=== PATIENT | female | born 1935 | race Caucasian/White ===

== ENCOUNTER 2017-10-30 10:12 | Inpatient (IN) | payer OTHER, MEDICARE ==
[~2017-10-30] VITALS: Ht 152.4 cm; Wt 65.3 kg
[~2017-10-30 10:12] MED LIST: ASPIRIN EC81 M1 PO; CENTRUM SILVER1 EAC3 PO; CITRACAL + D E1 EACH PO; DILTIAZEM 24HR240 MG PO; LIPITOR20 M2 PO; LISINOPRIL-HCT1 EACH PO; SERTRALINE HCL50 MG PO
[2017-10-30] MEDS ORDERED: PRESERVISION A1 EACH PO (11:38)
[2017-10-30] MEDS ORDERED: VITAMIN D31000 UNI2 PO (11:39)
[2017-10-30 11:42] LABS: ABSOLUTE BASOPHIL COUNT 0.1 /CUMM (0.0-0.2); ABSOLUTE EOSINOPHIL COUNT 0 /CUMM (0.0-0.7); ABSOLUTE GRANULOCYTE CT 5.3 /CUMM (1.4-6.5); ABSOLUTE LYMPH COUNT 1.7 /CUMM (1.2-3.4); ABSOLUTE MONOCYTE COUNT 0.6 /CUMM (0.10-0.60); BASOPHIL % 0.9 % (0.0-2.0); EOSINOPHIL % 0 % (0-5); MEAN CORPUSCULAR HGB 25.6 PG (27.0-31.0); MEAN CORPUSCULAR HGB CONC 32.8 G/DL (33.0-37.0); MEAN CORPUSCULAR VOLUME 78.1 FL (81.0-99.0); PLATELET COUNT 265 /CUMM (130-400); RBC DISTRIBUTION WIDTH 15.1 % (11.5-14.5); RED BLOOD CELL CT 4.73 /CUMM (4.20-5.40); WHITE BLOOD CELL COUNT 7.6 /CUMM (4.8-10.8)
--- NOTE | 2017-10-30 11:51 | ED AMS/SEIZURE/WEAK/DIZZY ---
History of Present Illness General Chief Complaint: Dizziness Stated Complaint: DIZZY Source: patient Exam Limitations: no limitations Vital Signs & Intake/Output Vital Signs & Intake/Output Vital Signs Date Time Temp Pulse Resp B/P B/P Pulse O2 O2 Flow FiO2 Mean Ox Delivery Rate 10/30 1259 Room Air 10/30 1215 98.6 75 20 141/65 97 Room Air 10/30 1018 98.4 98 18 175/76 98 Room Air Allergies Coded Allergies: shrimp (Severe, ANAPHYLAXIS 10/30/17) Reconcile Medications Aspirin (Ecotrin*) 81 MG TABLET.DR 1 TAB PO DAILY HEART HEALTH (Reported) Atorvastatin Calcium (Lipitor) 20 MG TABLET 1 TAB PO DAILY CHOLESTEROL ( Reported) Calcium Carb & Citrate/Vit D3 (Citracal + D ER Tablet) 600 MG CALCIUM-500 UNIT TABLET.ER 1 TAB PO DAILY VITAMIN SUPPORT (Reported) Cholecalciferol (Vitamin D3) 1,000 UNIT TABLET 1 TAB PO DAILY VITAMIN SUPPORT (Reported) Diltiazem HCl (Diltiazem 24HR ER) 240 MG CAP.ER.24H 1 CAP PO DAILY HEART ( Reported) Lisinopril/Hydrochlorothiazide (Lisinopril-Hctz 20-12.5 MG Tab) 20 MG-12.5 MG TABLET 1 TAB PO DAILY HEART (Reported) Multivit-Min/FA/Lycopen/Lutein (Centrum Silver Tablet) 0.4 MG-300 MCG-250 MCG TABLET 1 TAB PO DAILY VITAMIN SUPPORT (Reported) Sertraline HCl 50 MG TABLET 1 TAB PO DAILY MENTAL HEALTH (Reported) Vit A/Vit C/Vit E/Zinc/Copper (Preservision Areds Tablet) 7,160-113 TABLET 1 TAB PO DAILY EYE (Reported) Triage Note: 82 YO FEMALE TO TRIAGE FOR EVAL OF EPISODE YESTERDAY WHERE SHE WAS STANDING AT THE COUNTER AND HAD COLD SWEATS AND WASNT RESPONDING TO FAMILY. PER FAMILY, PT DID NOT FALL TO THE GROUND "IT WAS LIKE SHE PASSED OUT BUT WAS STANDING THERE" PT STATES SHE REMEMBERS THE ENTIRE EPISODE AND REMEMBERS HEARING HER FAMILY TALKNIG TO HER BUT SHE COULDNT RESPOND. REPORTS TODAY SHE FEELS "OFF" DENIES ANY PAIN. Triage Nurses Notes Reviewed? yes Onset: Abrupt Duration: day(s): (1), yesterday Timing: recent history Injury Environment: home Severity: moderate, severe No Modifying Factors: none HPI: 82-year-old female comes into the emergency room for further evaluation of unresponsive episode that occurred yesterday. Patient reported she was drying dishes at the sink. She suddenly became very lightheaded dizzy and sweaty. The family member reports that she had a stone cold face and certainly was not responding when they were asking her questions. She was standing there. They sat her down. They report that there was no complete loss of consciousness. She denied any chest pain or shortness of breath at that time. Symptoms lasted for less than 2 minutes. She did not have any slurring of her words or facial droop at that time. She reports that this happened to her some about a year ago. (Pino Schroeder) Past History Travel History Traveled to [place] past 21 day No Medical History Any Pertinent Medical History? see below for history Cardiovascular: hypertension, hyperlipidemia Surgical History Surgical History: non-contributory Psychosocial History What is your primary language Divehi Tobacco Use: Quit >30 days ago Family History Hx Contributory? No (Pino Schroeder) Review of Systems Review of Systems Constitutional: Reports: no symptoms. EENTM: Reports: no symptoms. Respiratory: Reports: no symptoms. Cardiovascular: Reports: see HPI. GI: Reports: no symptoms. Genitourinary: Reports: no symptoms. Musculoskeletal: Reports: no symptoms. Skin: Reports: no symptoms. Neurological/Psychological: Reports: see HPI. Hematologic/Endocrine: Reports: no symptoms. Immunologic/Allergic: Reports: no symptoms. All Other Systems: Reviewed and Negative (Pino Schroeder) Physical Exam Physical Exam General Appearance: well developed/nourished, no apparent distress, alert, awake Head: atraumatic, normal appearance Eyes: Bilateral: normal appearance, EOMI. Ears, Nose, Throat: normal ENT inspection, hearing grossly normal Neck: normal inspection Respiratory: normal breath sounds, no respiratory distress Cardiovascular: regular rate/rhythm, murmur Gastrointestinal: soft, non-tender Back: normal inspection Extremities: normal range of motion Neurologic/Psych: no motor/sensory deficits, awake, alert, oriented x 3, normal gait, direct support staff member II-XII nml as tested, graphesthesia and stereognosis intact, finger to nose intact Skin: intact, normal color Core Measures ACS in differential dx? No CVA/TIA Diagnosis Yes Swallow Evaluation Pass Swallow eval date 10/30/17 Swallow eval time 1418 Sepsis Present: No Sepsis Focused Exam Completed? No (Jonathan THOMAS,Pino) Progress Differential Diagnosis: arrythmia, alcohol intoxication, CVA/stroke, dehydration , electrolyte imbalance, hypoglycemia, hypoxia, intracranial Hem., intracranial mass/tumor, pneumonia, postural hypotension, sepsis, seizure disorder, subarachnoid Hem., UTI/pyelo, vertebrobasilar insuff Plan of Care: Orders Procedure Date/time Status Regular Diet 10/30 D Active Patient Data 10/30 1406 Active OXYGEN SETUP (GEN) 10/30 1318 Active Saline Lock 10/30 1318 Active Admit to inpatient 10/30 1318 Active Vital Signs 10/30 1318 Active Activity/Ambulation 10/30 1318 Active Code Status 10/30 1318 Active Telemetry/Student Development Advisor 10/30 1134 Active URINALYSIS 10/30 1133 Active TROPONIN LEVEL 10/30 1114 Complete PARTIAL THROMBOPLASTIN TIME 10/30 1114 Complete PROTHROMBIN TIME 10/30 1114 Complete COMPREHENSIVE METABOLIC PANEL 10/30 1114 Complete CBC WITHOUT DIFFERENTIAL 10/30 1114 Complete EKG 10/30 1018 Active Laboratory Tests 10/30/17 1132: Anion Gap 11, Estimated GFR > 60, BUN/Creatinine Ratio 21.3, Glucose 112 H, Calcium 9.5, Total Bilirubin 0.7, AST 40 H, ALT 47, Alkaline Phosphatase 144 H , Troponin I < 0.01, Total Protein 7.4, Albumin 4.3, Globulin 3.1, Albumin/ Globulin Ratio 1.4, PT 11.7, INR 1.07, APTT 30, CBC w Diff NO MAN DIFF REQ, RBC 4.73, MCV 78.1 L, MCH 25.6 L, MCHC 32.8 L, RDW 15.1 H, MPV 11.0 H, Gran % 69.0, Lymphocytes % 22.4, Monocytes % 7.7, Eosinophils % 0, Basophils % 0.9, Absolute Granulocytes 5.3, Absolute Lymphocytes 1.7, Absolute Monocytes 0.6, Absolute Eosinophils 0, Absolute Basophils 0.1 Diagnostic Imaging: Viewed by Me: CT Scan. Discussed w/RAD: CT Scan. Radiology Impression: PATIENT: JAI SOMMERS PRESENT AGE: 82 PATIENT ACCOUNT NO: [id number] : 36 LOCATION: [facility] ORDERING PHYSICIAN: Pino THOMAS SERVICE DATE: 10/30/17 EXAM TYPE : CAT - CT HEAD WO IV CONTRAST EXAMINATION: CT HEAD WITHOUT CONTRAST CLINICAL INFORMATION: Syncope. TIA. COMPARISON: CT scan of the head 08/08/2014. TECHNIQUE : Contiguous axial imaging was performed from the skull base to vertex without intravenous administration of contrast. DLP: 601.51 mGy-cm FINDINGS: There is no acute intracranial hemorrhage or abnormal extra-axial collection. No intracranial mass effect or midline shift. Lateral and third ventricles are normal. No hydrocephalus. Russell-white matter differentiation is grossly preserved and there is no evidence of acute territorial infarct. The calvarium and skull base are intact. Mastoid air cells and middle ear cavities are well aerated. Visualized paranasal sinuses are well-aerated. IMPRESSION: Unremarkable CT scan of the head. No evidence of acute territorial infarct or hemorrhage. DICTATED BY : Norebrt William MD DATE/TIME DICTATED:10/30/171212 AGRICULTURAL CROP FARM MANAGER: SHAYLA DATE/TIME TRANSCRIBED:10/30/171212 CONFIDENTIAL, DO NOT COPY WITHOUT APPROPRIATE AUTHORIZATION. <Electronically signed in Other Vendor System> SIGNED BY: Norbert William MD 10/30/171218 Initial ED EKG: normal sinus rhythm, rate (87), nonspecific ST T wave chg (Pino Schroeder) Departure Departure Disposition: STILL A PATIENT Condition: Stable Clinical Impression Primary Impression: TIA (transient ischemic attack) Referrals: Christina RYAN,Tin Farrar (PCP/Family) Departure Forms: Customer Survey General Discharge Information Admission Note Spoke With: Prince Lopez MD Documentation of Exam: Documentation of any treatments & extenuating circumstances including Concerns Regarding Discharge (functional status, medication knowledge or non-compliance, living conditions, etc.) that warrant an admission rather than observation: TIA versus syncope versus focal seizure. MRI of brain. EEG. Carotid artery Dopplers. Echocardiogram. Neurology and cardiology consultation. Medically not safe for discharge. (Pino Schroeder) PA/RESAW MACHINE OPERATOR Co-Sign Statement Statement: ED Attending supervision documentation- x I saw and evaluated the patient. I have also reviewed all the pertinent lab results and diagnostic results. I agree with the findings and the plan of care as documented in the PA's/RESAW MACHINE OPERATOR's documentation. Episode of staring unresponsiveness able to hear surrounding family now normal. Had previous episode 3 years ago without workup. [] I have reviewed the ED Record and agree with the PA's/RESAW MACHINE OPERATOR's documentation. [] Additions or exceptions (if any) to the PAs/RESAW MACHINE OPERATOR's note and plan are summarized below: [] (Arcadio RYAN,Yassine) Critical Care Note Critical Care Note Critical Care Time: 30-74 min (35) (Jonathan THOMAS,Pino)
[2017-10-30 12:12] LABS: PT 11.7 SEC (9.4-12.5); PTT 30 SEC (25-37)
--- NOTE | 2017-10-30 12:19 | CT SCAN REPORT ---
EXAMINATION: CT HEAD WITHOUT CONTRAST CLINICAL INFORMATION: Syncope. TIA. COMPARISON: CT scan of the head 08/08/2014. TECHNIQUE: Contiguous axial imaging was performed from the skull base to vertex without intravenous administration of contrast. DLP: 601.51 mGy-cm FINDINGS: There is no acute intracranial hemorrhage or abnormal extra-axial collection. No intracranial mass effect or midline shift. Lateral and third ventricles are normal. No hydrocephalus. Russell-white matter differentiation is grossly preserved and there is no evidence of acute territorial infarct. The calvarium and skull base are intact. Mastoid air cells and middle ear cavities are well aerated. Visualized paranasal sinuses are well-aerated. IMPRESSION: Unremarkable CT scan of the head. No evidence of acute territorial infarct or hemorrhage.
--- NOTE | 2017-10-30 14:27 | History & Physical ---
Chris Verma 10/30/17 1427: General Information and HPI MD Statement: I have seen and personally examined JAI VALDEZ and documented this H&P. The patient is a 82 year old F who presented with a patient stated chief complaint of []. Source of Information: patient, family History of Present Illness: 82 yo F with a PMH significant for HTN, HLD, macular degeneration, previous cholesystectomy, and depression, was brought to [facility] ED after an episode of unresponsiveness today. Patient believes she was doing fine until this morning when she suddenly got a cold sweat, felt dizzy like about to faint, and couldn't move. Her family immediately called EMS after sitting her down. According to her family the episode could of have lasted up to 2 minutes. Her eyes were open the entire time , but she was unresponsive. She denies losing conciousness. According to the family this has happened a total of 3 times in the last 3 1/2 years. She was hospitalized for a previous episode but CT head at that time did not show any acute process. Patient denies aura, blurry vision, ringing in ears, tingling in body, palpitations immediately prior to the episode. Allergies/Medications Allergies: Coded Allergies: shrimp (Severe, ANAPHYLAXIS 10/30/17) Home Med list Aspirin (Ecotrin*) 81 MG TABLET.DR 1 TAB PO DAILY HEART HEALTH (Reported) Atorvastatin Calcium (Lipitor) 20 MG TABLET 1 TAB PO DAILY CHOLESTEROL ( Reported) Calcium Carb & Citrate/Vit D3 (Citracal + D ER Tablet) 600 MG CALCIUM-500 UNIT TABLET.ER 1 TAB PO DAILY VITAMIN SUPPORT (Reported) Cholecalciferol (Vitamin D3) 1,000 UNIT TABLET 1 TAB PO DAILY VITAMIN SUPPORT (Reported) Diltiazem HCl (Diltiazem 24HR ER) 240 MG CAP.ER.24H 1 CAP PO DAILY HEART ( Reported) Lisinopril/Hydrochlorothiazide (Lisinopril-Hctz 20-12.5 MG Tab) 20 MG-12.5 MG TABLET 1 TAB PO DAILY HEART (Reported) Multivit-Min/FA/Lycopen/Lutein (Centrum Silver Tablet) 0.4 MG-300 MCG-250 MCG TABLET 1 TAB PO DAILY VITAMIN SUPPORT (Reported) Sertraline HCl 50 MG TABLET 1 TAB PO DAILY MENTAL HEALTH (Reported) Vit A/Vit C/Vit E/Zinc/Copper (Preservision Areds Tablet) 7,160-113 TABLET 1 TAB PO DAILY EYE (Reported) Past History Travel History Traveled to [place] past 21 day No Medical History Cardiovascular: hypertension, hyperlipidemia Surgical History Surgical History: non-contributory Review of Systems Review of Systems Constitutional: Reports: see HPI. Exam & Diagnostic Data Last 24 Hrs of Vital Signs/I&O Vital Signs Date Time Temp Pulse Resp B/P B/P Pulse O2 O2 Flow FiO2 Mean Ox Delivery Rate 10/30 2311 98.2 82 18 154/7 97 Room Air 10/30 2219 75 158/64 10/30 1946 98.5 80 20 180/79 97 Room Air 10/30 1709 98.9 92 20 134/77 10/30 1709 98.9 92 20 134/77 98 Room Air 10/30 1259 Room Air 10/30 1215 98.6 75 20 141/65 97 Room Air 10/30 1018 98.4 98 18 175/76 98 Room Air Intake & Output 10/31 0800 10/31 0000 10/30 1600 Intake Total 300 Output Total Balance 300 Intake, Oral 300 Patient 145 lb 140 lb Weight Weight Bed scale Reported by Patient Measurement Method Physical Exam General Appearance Alert, Oriented X3, Cooperative, No Acute Distress HEENT Atraumatic, PERRLA, EOMI Neck Supple Cardiovascular Regular Rate, Normal S1, Normal S2, Systolic Murmur 2/6 Lungs Clear to Auscultation Abdomen Soft, No Tenderness Neurological Normal Speech, Strength at 5/5 X4 Ext, Cranial Nerves 3-12 NL Assessment/Plan Assessment: 82 yo F with a PMH significant for HTN, HLD, macular degeneration, previous cholesystectomy, and depression, was brought to [facility] ED after an episode of unresponsiveness today. Vitals on admission T 98.4, HR 98, RR 18, BP 175/76, O2 98% on room air. Unremarkable CT scan of the head. No evidence of acute territorial infarct or hemorrhage. Problem List: #TIA vs Absence Seizure #Uncontrolled HTN Plan: - Admit to telemetry floor - Continue atrovastatin and add plavix to her current aspirin - MRI - EEG - Echo - Orthostats Q6h DVT ppx Full Code As Ranked By This Provider Problem List: 1. TIA (transient ischemic attack) Core Measures/Misc (12/04) Acute Coronary Syndrome ACS Diagnosis: No Congestive Heart Failure Congestive Heart Failure Diagnosis No Cerebrovascular Accident CVA/TIA Diagnosis: Yes Swallow Evaluation Pass VTE (View Protocol) VTE Risk Factors Age>40 No Mechanical VTE Prophylaxis d/t N/A MechProphylax Ordered No VTE Pharm Prophylaxis d/t NA PharmProphylax ordered Sepsis (View protocol) Sepsis Present: No If YES complete Sepsis Event Note If YES complete Sepsis Event Note Cindy Ferguson MD 10/30/17 1439: Core Measures/[facility] [place] (12/04) Sepsis (View protocol) If YES complete Sepsis Event Note If YES complete Sepsis Event Note Resident Review Statement Resident Statement: examined this patient, discussed with buyer intern, agreed with buyer intern, discussed with family, reviewed EMR data (avail), discussed with nursing , reviewed images Other Findings: Ms. Valdez is an 82 y/o lady with PMH significant for hypertension, hyperlipidemia and depression was brought in by family for an episode of unresponsiveness yesterday. Per the patient, she was in her usual state of health until this morning when while she was standing in her kitchen and all of a sudden felt dizzy, she called her family for help who sat her down in a chair. She felt like she was about to pass out but denies losing conscious. Episode lasted for 1-2 min and hen resolved spontaneously. Per the family she was also unable to talk at that time but did not have any difficulty finding words. Patient has had 2 previous similar episodes in the past 3-1/2 years. She was seen at [facility] ER for 1 of the episodes and was discharged home after a negative head CT. Denies any chest pain, palpitations, weakness/numbness, vision changes, headaches, seizure-like activity or altered mentation. Also denies any recent change in medications, herbal or [id number] medication, diarrhea/vomiting or decreased p.o. intake. Vitals on admission were temperature 98.4, heart rate 98, respiratory rate 18 and blood pressure 175/76 with O2 sats 98% on room air. Labs were significant for blood glucose of 112, AST 40, alkaline phosphatase 144 and urinalysis pending. Unremarkable CT scan of the head. No evidence of acute territorial infarct or hemorrhage. Problem List; 1. Unresponsive Episode; Could be TIA VS Absence Seizure 2. Hx of HTN, HLD - Admit the patient to telemetry floor - Patient is already on aspirin 81 mg daily, will continue. - Continue atorvastatin to 20mg daily. - Obtain MRI of the head. - Echocardiogram - Obtain EEG to r/o absence seizures. - Check Orthostatic Vitals. - Check A1c and lipid panel. - Continue diltiazem and lisinopril/hydrochlorothiazide for hypertension and sertraline for depression. DVT Prophylaxis; ALPS and S/C Lovenox Patient is full code. Justina RYAN,Mena 10/30/17 1454: Core Measures/Misc (12/04) Sepsis (View protocol) If YES complete Sepsis Event Note If YES complete Sepsis Event Note Attending MD Review Statement Attending Statement Attending MD Statement: examined this patient, discuss w/resident/PA/WOOD MODEL MAKER, agreed w/resident/PA/WOOD MODEL MAKER, reviewed EMR data (avail), reviewed images Attending Assessment/Plan: 82-year-old female past medical history of hypertension, hyperlipidemia, on the baby aspirin as an outpatient coming in with this episode of unresponsiveness that occurred yesterday. Patient is dizzy, not obviously orthostatic and no focal neurological symptoms. She does have risk factors for stroke and given the episode of unresponsiveness will bring her into telemetry, get an echocardiogram and an MRI. We will continue her antihypertensive medications as we do not have any objective evidence of a CVA right now, DVT prophylaxis and follow closely.
--- NOTE | 2017-10-30 15:07 | Admission Certification ---
Admission Certification Certification Statement - As attending physician, I certify that at the time of - admission, based on clinical presentation, severity of - symptoms, need for further diagnostic testing and - therapeutic interventions, and risk of adverse outcomes - without in-hospital treatment, in my clinical assessment, - this patient requires an acute hospital stay for a minimum - of two nights or longer. I have also considered psychsocial - factors such as support system, advanced age, financial - issues, cognitive issues, and failed out-patient treatments, - past re-admission history, safety of patient, and lack of - compliance as applicable. Specific rationale supporting this admission is: Syncope, question TIA
--- NOTE | 2017-10-30 19:52 | MRI REPORT ---
EXAMINATION: MR BRAIN WITHOUT CONTRAST CLINICAL INFORMATION: Recent episode of dizziness. CT scanning head negative. History of hypertension and hyperlipidemia. COMPARISON: Head CT 10/30/2017. TECHNIQUE: Multiplanar, multisequence imaging of the brain was performed without intravenous contrast. \H\ \N\FINDINGS: There is no acute infarction, mass, hemorrhage, or extra-axial collection. The ventricles, sulci, and basilar cisterns are normal in size and configuration. There are mild foci of T2 hyperintensity in the bilateral cerebral white matter, which are nonspecific but likely reflect underlying small vessel disease. There is mild diffuse brain parenchymal volume loss. No evidence of hydrocephalus. The flow voids of the major intracranial arteries appear intact. There is mild paranasal sinus mucosal thickening. A small amount of fluid is present in the bilateral mastoid air cells. IMPRESSION: - No acute infarct, mass lesion, intracranial hemorrhage, or evidence of hydrocephalus. - Mild small vessel ischemic changes in the cerebral white matter.
[2017-10-30 22:19] VITALS: BP 158/64
[2017-10-30 23:11] VITALS: BP 154/7
[2017-10-31 06:48] VITALS: BP 130/70
--- NOTE | 2017-10-31 07:18 | PN- Housestaff ---
BelledevikaChani vasquesesh 10/31/17 0718: Subjective Follow-up For: TIA vs Absent Seizure Subjective: No events per nursing. No events on tele monitor. Patient is doing well and is ambulating by herself, going for walks around the hallway. She would like to go home, she is in good spirits. She denies chest pain, palpitations, dizziness, blurry vision, N/V or any repeat episodes resembling absent seizure or TIA. Review of Systems Constitutional: Reports: see HPI. Objective Last 24 Hrs of Vital Signs/I&O Vital Signs Date Time Temp Pulse Resp B/P B/P Pulse O2 O2 Flow FiO2 Mean Ox Delivery Rate 10/31 2211 97.8 68 18 140/76 97 Room Air 10/31 1450 98.0 79 20 130/60 98 10/31 0923 98.3 74 18 130/70 10/31 0648 98.3 74 18 130/70 98 Room Air Intake & Output 11/01 0800 11/01 0000 10/31 1600 Intake Total 100 720 Output Total Balance 100 720 Intake, Oral 100 720 Patient 144 lb Weight Weight Bed scale Measurement Method Physical Exam General Appearance: Alert, Oriented X3, Cooperative, No Acute Distress Skin Temp/Moisture Exam: Warm/Dry Sepsis Skin Exam (color): Normal for Ethnicity HEENT: Atraumatic, EOMI Neck: Supple Cardiovascular: Regular Rate, Normal S1, Normal S2 Lungs: Clear to Auscultation Abdomen: Normal Bowel Sounds, Soft, No Tenderness Neurological: Normal Gait, Normal Speech, Strength at 5/5 X4 Ext Extremities: No Tenderness/Swelling Current Medications: Current Medications Sig/Katerine Start time Last Medication Dose Route Stop Time Status Admin Acetaminophen 650 MG Q6P PRN 10/30 1600 AC PO Aspirin Buffered 81 MG DAILY 10/30 1557 AC 10/31 PO 0924 Atorvastatin Calcium 20 MG 1700 10/30 1700 AC 10/31 PO 1809 Diltiazem HCl 240 MG DAILY 10/30 1557 AC 10/31 PO 0924 Enoxaparin Sodium 40 MG DAILY 10/30 1554 AC 10/31 SC 0923 Hydrochlorothiazide 12.5 MG DAILY 10/30 1559 AC 10/31 PO 0924 Lisinopril 20 MG DAILY 10/30 1558 AC 10/31 PO 0923 Sertraline HCl 50 MG DAILY 10/30 1558 AC 10/31 PO 0923 Last 24 Hrs of Lab/Aaron Results Last 24 Hrs of Labs/Mics: Laboratory Tests 10/31/17 0630: Anion Gap 6, Estimated GFR > 60, BUN/Creatinine Ratio 21.4, CBC w Diff NO MAN DIFF REQ, RBC 4.33, MCV 78.2 L, MCH 25.4 L, MCHC 32.5 L, RDW 15.4 H, MPV 11.5 H, Gran % 54.8, Lymphocytes % 28.6, Monocytes % 9.4 H, Eosinophils % 6.0 H, Basophils % 1.2, Absolute Granulocytes 3.5, Absolute Lymphocytes 1.8, Absolute Monocytes 0.6, Absolute Eosinophils 0.4, Absolute Basophils 0.1 Assessment/Plan Assessment: 82 yo F with a PMH significant for HTN, HLD, macular degeneration, previous cholesystectomy, and depression, was brought to [place] ED after an episode of unresponsiveness. She describes it like a cold sweat, dizziness/disorientation, and couldn't move. She has had 3 such episodes in last 3 1/2 yrs. We are working her up for TIA vs Absent Seizure. She hasn't had any repeat episodes since her hospital stay. Head MRI/CT was unremarkable except mild ischemic change in cerebral white matter. MRI Head 10/30/17 IMPRESSION: - No acute infarct, mass lesion, intracranial hemorrhage, or evidence of hydrocephalus. - Mild small vessel ischemic changes in the cerebral white matter. Echo 10/31/17 CONCLUSIONS Moderate concentric left ventricular hypertrophy. Normal left ventricular ejection fraction visually estimated at > 65%. Abnormal relaxation filling pattern of the left ventricle for age (stage 1 diastolic dysfunction). The left atrium is normal in size. Mild thickening/calcification of the mitral valve leaflets. Moderate mitral annular calcification. No mitral regurgitation. Diffuse thickening of the aortic valve cusps with reduced excursion. Moderate aortic stenosis. Unable to estimate the right ventricular systolic pressure. Plan: - Pending DC following results of EEG - Anticipate DC if results normal - Continue Apirin 81mg, mod intensity statin and anti-htn regimen Problem List: 1. TIA (transient ischemic attack) Pain Ratin Pain Location: NA Pain Goal: Remain pain free Pain Plan: Per pathway Tomorrow's Labs & Rationales: None Mena Horn MD 10/31/17 1040: Attending MD Review Statement Attending Statement Attending MD Statement: examined this patient, discuss w/resident/PA/SCREENING NURSE, agreed w/resident/PA/SCREENING NURSE, reviewed EMR data (avail), discussed with nursing, discussed with case mgmt, reviewed images Attending Assessment/Plan: Patient feels completely well and is eager to go home. She has had says that overall she had 3 such episodes over the year is lasting from 30 seconds to 2 minutes. Her MRI was completely normal. We have an echocardiogram and an EEG pending. I spoke to her at length and explained that if the echo and EEG are normal she could be discharged but she needs outpatient neurological follow-up. I also explained that we do not have an etiology of these episodes and she will need to see the neurologist and likely have a 24-hour EEG monitoring. She will remain on her antihypertensives with a baby aspirin and she is advised strongly not to drive until she sees the neurologist.
[2017-10-31 07:45] LABS: ABSOLUTE BASOPHIL COUNT 0.1 /CUMM (0.0-0.2); ABSOLUTE EOSINOPHIL COUNT 0.4 /CUMM (0.0-0.7); ABSOLUTE GRANULOCYTE CT 3.5 /CUMM (1.4-6.5); ABSOLUTE LYMPH COUNT 1.8 /CUMM (1.2-3.4); ABSOLUTE MONOCYTE COUNT 0.6 /CUMM (0.10-0.60); BASOPHIL % 1.2 % (0.0-2.0); GRANULOCYTE % 54.8 % (42.2-75.2); HEMATOCRIT 33.8 % (37-47); MEAN CORPUSCULAR HGB 25.4 PG (27.0-31.0); MEAN CORPUSCULAR HGB CONC 32.5 G/DL (33.0-37.0); MEAN CORPUSCULAR VOLUME 78.2 FL (81.0-99.0); MEAN PLATELET VOLUME 11.5 FL (7.4-10.4); RBC DISTRIBUTION WIDTH 15.4 % (11.5-14.5); RED BLOOD CELL CT 4.33 /CUMM (4.20-5.40); WHITE BLOOD CELL COUNT 6.4 /CUMM (4.8-10.8)
--- NOTE | 2017-10-31 08:03 | PN- Student ---
Subjective Subjective: 82-year-old female with PMH of hypertension, hyperlipidemia, depression, macular degeneration presented to ED with 1 episode of dizziness and near-syncope for 1- 2 mins in which she claimed cold sweat, suddenly froze, and inablility to communicate. Patient had 2 similar episodes in the past 3.5 years. Hospital day 1: Overnight, desk monitor reported NSR 68 from 12am-6am. Patient was interviewed and examined at bed side. Patient was in good mood, felt comfortable, and had no distress. There was no major compaints, no acute events overnight. Patient denied SOB, chest pain, fever, chills, malaise, weakness, abdominal pain, headache. Current Medications Sig/Katerine Start time Last Medication Dose Route Stop Time Status Admin Acetaminophen 650 MG Q6P PRN 10/30 1600 AC PO Aspirin Buffered 81 MG DAILY 10/30 1557 AC 10/31 PO 0924 Atorvastatin Calcium 20 MG 1700 10/30 1700 AC 10/30 PO 1709 Diltiazem HCl 240 MG DAILY 10/30 1557 AC 10/31 PO 0924 Enoxaparin Sodium 40 MG DAILY 10/30 1554 AC 10/31 SC 0923 Hydrochlorothiazide 12.5 MG DAILY 10/30 1559 AC 10/31 PO 0924 Lisinopril 20 MG DAILY 10/30 1558 AC 10/31 PO 0923 Sertraline HCl 50 MG DAILY 10/30 1558 AC 10/31 PO 0923 Allergies: shrimp Objective Objective: Vital Signs Date Time Temp Pulse Resp B/P B/P Pulse O2 O2 Flow FiO2 Mean Ox Delivery Rate 10/31 0923 98.3 74 18 130/70 10/31 0648 98.3 74 18 130/70 98 Room Air 10/30 2311 98.2 82 18 154/7 97 Room Air 10/30 2219 75 158/64 10/30 1946 98.5 80 20 180/79 97 Room Air 10/30 170 98.9 92 20 134/77 10/30 170 98.9 92 20 134/77 98 Room Air Intake & Output 10/31 1600 10/31 0800 10/31 0000 Intake Total 150 300 Output Total Balance 150 300 Intake, Oral 150 300 Patient 145 lb Weight Weight Bed scale Measurement Method Physical Exam: - Patient is oriented to Time, Person and Place, composed, no acute distress and coorporative. - HEENT: NC/AT, PERRLA, EOMI, no lymphadenopathy. - Cardio: normal S1, S2, no additional murmur nor gallop. - Pulmonary: CTA bilaterally. - Abdomen: soft, nontender, normal bowel sound, no guarding, no rigidity. - Extremities: no rash, warm, 2+ on radial and posterior tibial pulses. - Neuro: CN II-XII intact, 5/5 muscle strength bilaterally both lower and upper ext, sensation intact Results Results: Laboratory Tests 10/31/17 0630: Anion Gap 6, Estimated GFR > 60, BUN/Creatinine Ratio 21.4, CBC w Diff NO MAN DIFF REQ, RBC 4.33, MCV 78.2 L, MCH 25.4 L, MCHC 32.5 L, RDW 15.4 H, MPV 11.5 H, Gran % 54.8, Lymphocytes % 28.6, Monocytes % 9.4 H, Eosinophils % 6.0 H, Basophils % 1.2, Absolute Granulocytes 3.5, Absolute Lymphocytes 1.8, Absolute Monocytes 0.6, Absolute Eosinophils 0.4, Absolute Basophils 0.1 10/30/17 1555: Urinalysis LIGHT H, Urine Color YEL, Urine Clarity HAZY H, Urine pH 6.5, Ur Specific [place] 1.015, Urine Protein NEG, Urine Ketones 15 H, Urine Nitrite NEG, Urine Bilirubin NEG, Urine Urobilinogen 0.2, Ur Leukocyte Esterase SMALL H , Ur Microscopic SEDIMENT EXAMINED, Urine WBC 1-3 H, Ur Epithelial Cells MOD H , Urine Bacteria FEW H, Hyaline Casts RARE H, Urine Mucus MOD H, Urine Hemoglobin NEG, Urine Glucose NEG 10/30/17 1132: Anion Gap 11, Estimated GFR > 60, BUN/Creatinine Ratio 21.3, Glucose 112 H, Hemoglobin A1c 5.6, Calcium 9.5, Total Bilirubin 0.7, AST 40 H, ALT 47, Alkaline Phosphatase 144 H, Troponin I < 0.01, Total Protein 7.4, Albumin 4.3, Globulin 3.1, Albumin/Globulin Ratio 1.4, Triglycerides 132, Cholesterol 187, LDL Cholesterol, Calc 98, HDL Cholesterol 63 H, Cholesterol/HDL Ratio 3, PT 11.7, INR 1.07, APTT 30, CBC w Diff NO MAN DIFF REQ, RBC 4.73, MCV 78.1 L, MCH 25.6 L, MCHC 32.8 L, RDW 15.1 H, MPV 11.0 H, Gran % 69.0, Lymphocytes % 22.4 , Monocytes % 7.7, Eosinophils % 0, Basophils % 0.9, Absolute Granulocytes 5.3, Absolute Lymphocytes 1.7, Absolute Monocytes 0.6, Absolute Eosinophils 0, Absolute Basophils 0.1 Imaging: - Head MRI: No acute infarct, mass lesion, intracranial hemorrhage, or evidence of hydrocephalus, mild small vessel ischemic changes in the cerebral white matter. - Head CT: unremarkable. Assessment/Plan Assessment: Summary: 82-year-old female with PMH of hypertension, hyperlipidemia, depression, macular degeneration presented to ED with 1 episode of dizziness and near-syncope for 1- 2 mins in which she claimed cold sweat, suddenly froze, and inablility to communicate. Pt had no acute events, no complained. Labs showed high glucose 112 , ALP 144, HLD 63H, AST 40. Head MRI/CT was unremarkable except mild ischemic change in cerebral white matter. Problem list: - TIA - HTN - HLD - Macular degeneration - Depression Plan: - Follow up on CBC, chemistry. - Pending DC follow up on EEG, Echo. If results come back normal, anticipate discharge today. - Continue other home meds. - Have nurse walk the patient before discharge. #DVT ppx with Alps and Levonox. #Heart healthy diet. #Full code.
[2017-10-31 08:25] LABS: PLATELET COUNT 219 /CUMM (130-400)
--- NOTE | 2017-10-31 11:50 | Patient Discharge Instructions ---
Discharge Instructions General Discharge Information You were seen/treated for: TIA vs Absent Seizure You had these procedures: EEG, Echocardiogram, MRI Head Watch for these problems: Blurring of vision, slurring of speech, or any other signs/symptoms of seizure or stroke, please go to your nearest ER. Special Instructions: Follow up with PCP and neurologist within one week. Please do not drive until you see the neurologist. Acute Coronary Syndrome Inclusion Criteria At DC or during hospital stay patient has or had the following: ACS DIAGNOSIS No Discharge Core Measures Meds if any: Prescribed or Continued at Discharge Meds if any: NOT Prescribed or Continued at Discharge Congestive Heart Failure Inclusion Criteria At DC or during hospital stay patient has or had the following: CHF DIAGNOSIS No Discharge Core Measures Meds if any: Prescribed or Continued at Discharge Meds if any: NOT Prescribed or Continued at Discharge Cerebrovascular accident Inclusion Criteria At DC or during hospital stay patient has or had the following: CVA/TIA Diagnosis Yes Discharge Core Measures Meds if any: Prescribed or Continued at Discharge Statin (required if LDL =>70) Yes (Atorvastatin) Meds if any: NOT Prescribed or Continued at Discharge Venous thromboembolism Inclusion Criteria VTE Diagnosis No VTE Type NONE VTE Confirmed by (Test) NONE Discharge Core Measures - Per Current guidelines, there needs to be overlap - treatment for the first 5 days of Warfarin therapy. - If discharged on Warfarin prior to 5 days of - overlap therapy, the patient will need to be - assessed for post discharge needs including - *Post discharge parental anticoagulation - *Warfarin and/or parental anticoagulation education - *Follow up date to check INR post discharge At least 5 days overlap therapy as Inpatient No Meds if any: Prescribed or Continued at Discharge Note: Overlap Therapy is Warfarin and Anticoagulant Meds if any: NOT Prescribed or Continued at Discharge
--- NOTE | 2017-10-31 13:01 | ECHOCARDIOGRAM REPORT ---
JAI SOMMERS Age: 82 : 1935 Gender: F Exam Date: 10/31/2017 11:54 Exam Location: 1 [address] Ht (in): 60 Wt (lb): 140 BSA: 1.66 BP: 130 / 70 Ordering Physician: Cindy Ferguson MD Referring Physician: Cindy Ferguson MD Technologist: eJt Wilder ANSELMO Room Number: Indications: Stroke Rhythm: Technical Quality: Good FINDINGS Left Ventricle Normal size left ventricle. Moderate concentric left ventricular hypertrophy. Normal left ventricular ejection fraction visually estimated at >65%. No obvious regional wall motion abnormalities. Abnormal relaxation filling pattern of the left ventricle for age (stage 1 diastolic dysfunction). Right Ventricle The right ventricle is normal in size and function. Right Atrium The right atrium is normal in size. Left Atrium The left atrium is normal in size. The interatrial septum is intact. Mitral Valve Mild thickening/calcification of the mitral valve leaflets. Moderate mitral annular calcification. No mitral regurgitation. Aortic Valve Diffuse thickening of the aortic valve cusps with reduced excursion. Moderate aortic stenosis. No aortic regurgitation. Tricuspid Valve The tricuspid valve is normal in structure and function. There is trace tricuspid regurgitation. Unable to estimate the right ventricular systolic pressure. Pulmonic Valve Physiologic pulmonic regurgitation. Mild pulmonic regurgitation. Pericardium Normal pericardium without effusion. No pleural effusion. Great Vessels Normal aortic root dimension. The aortic arch and great vessels are well seen and are normal. CONCLUSIONS Moderate concentric left ventricular hypertrophy. Normal left ventricular ejection fraction visually estimated at > 65%. Abnormal relaxation filling pattern of the left ventricle for age (stage 1 diastolic dysfunction). The left atrium is normal in size. Mild thickening/calcification of the mitral valve leaflets. Moderate mitral annular calcification. No mitral regurgitation. Diffuse thickening of the aortic valve cusps with reduced excursion. Moderate aortic stenosis. Unable to estimate the right ventricular systolic pressure. Angel Porras M.D. (Electronically Signed) Final Date: 31 October 2017 12:58 MEASUREMENTS (Male / Female) Normal Values 2D ECHO LV Diastolic Diameter PLAX 3.8 cm 4.2 - 5.9 / 3.9 - 5.3 cm LV Systolic Diameter PLAX 2.0 cm 2.1 - 4.0 cm LV Fractional Shortening PLAX 47.4 % 25 - 46 % LV Ejection Fraction 2D Teich 79.5 % IVS Diastolic Thickness 1.3 cm LVPW Diastolic Thickness 1.3 cm LV Relative Wall Thickness 0.7 RV Internal Dim ED PLAX 2.7 cm 1.9 - 3.8 cm LVOT Diameter 1.7 cm Aortic Root Diameter 2.7 cm LA Systolic Diameter LX 3.1 cm 3.0 - 4.0 / 2.7 - 3.8 cm LA Volume 36.0 cm 18 - 58 / 22 - 52 cm Ascending Aorta Diameter 3.1 cm DOPPLER AV Peak Velocity 334.0 cm/s AV Peak Gradient 44.6 mmHg AV Mean Velocity 220.0 cm/s AV Mean Gradient 23.0 mmHg AV Velocity Time Integral 67.6 cm LVOT Peak Velocity 81.2 cm/s LVOT Peak Gradient 2.6 mmHg LVOT Mean Velocity 55.6 cm/s LVOT Mean Gradient 1.0 mmHg LVOT Velocity Time Integral 24.6 cm LVOT Stroke Volume 55.8 cm AV Area Cont Eq vti 0.8 cm AV Area Cont Eq pk 0.6 cm MV Peak Velocity 128.0 cm/s MV Peak Gradient 6.6 mmHg MV Mean Velocity 68.8 cm/s MV Mean Gradient 2.0 mmHg Mitral E Point Velocity 88.4 cm/s Mitral A Point Velocity 117.0 cm/s Mitral E to A Ratio 0.8 MV PHT Velocity 97.7 cm/s MV Deceleration Beltrami 268.0 cm/s MV Pressure Half Time 109.4 ms MV Area PHT 2.0 cm MV Deceleration Time 370.0 ms LV E' Lateral Velocity 6.5 cm/s Mitral E to LV E' Lateral Ratio 13.5 LV E' Septal Velocity 6.3 cm/s Mitral E to LV E' Septal Ratio 13.9
[2017-10-31 14:50] VITALS: BP 130/60
[2017-10-31 22:11] VITALS: BP 140/76
[2017-11-01 07:12] VITALS: BP 130/60
--- NOTE | 2017-11-01 07:20 | PN- Housestaff ---
NishantcapriceChris 11/01/17 0720: Subjective Follow-up For: Presyncope (TIA vs Absent Seizure) Subjective: Pt seen and examined sitting in chair. No events per nursing. No events on tele monitor. She was upset that her EEG was not done. She has no new compaints. Review of Systems Constitutional: Reports: see HPI. Objective Last 24 Hrs of Vital Signs/I&O Vital Signs Date Time Temp Pulse Resp B/P B/P Pulse O2 O2 Flow FiO2 Mean Ox Delivery Rate 11/01 920 91 122/68 11/01 07 98.3 68 16 130/60 98 Room Air Physical Exam General Appearance: Alert, Oriented X3, Cooperative, No Acute Distress HEENT: Atraumatic, EOMI, Noromocephalic Cardiovascular: Regular Rate, Normal S1, Normal S2 Lungs: Clear to Auscultation Abdomen: Normal Bowel Sounds, Soft, No Tenderness Neurological: Normal Gait, Normal Speech, Strength at 5/5 X4 Ext Current Medications: Current Medications Sig/Katerine Start time Last Medication Dose Route Stop Time Status Admin Acetaminophen 650 MG Q6P PRN 10/30 1600 DCD PO Aspirin Buffered 81 MG DAILY 10/30 1557 DCD 11/01 PO 0921 Atorvastatin Calcium 20 MG 1700 10/30 1700 DCD 08 PO 1809 Diltiazem HCl 240 MG DAILY 10/30 1557 DCD 11/01 PO 0921 Enoxaparin Sodium 40 MG DAILY 10/30 1554 DCD 10/31 SC 0923 Hydrochlorothiazide 12.5 MG DAILY 10/30 1559 DCD 11/01 PO 0920 Lisinopril 20 MG DAILY 10/30 1558 DCD 11/01 PO 0921 Sertraline HCl 50 MG DAILY 10/30 1558 DCD 11/01 PO 0921 Assessment/Plan Assessment: 82 yo F with a PMH significant for HTN, HLD, macular degeneration, previous cholesystectomy, and depression, was brought to [place] ED after an episode of unresponsiveness. She describes it like a cold sweat, dizziness/disorientation, and couldn't move. She has had 3 such episodes in last 3 1/2 yrs. We are working her up for TIA vs Absent Seizure. She hasn't had any repeat episodes since her hospital stay. Head MRI/CT was unremarkable except mild ischemic change in cerebral white matter. Her echcardiogram should moderate aortic stenosis and moderate mitral annular calcification. EEG wasn't performed yesterday due to scheduling, and will be performed outpatient. Plan: - EEG and further neuro workup to be done outpatient - Pt instucted to followup with PCP, gardening manager (regarding echo), and neurologist - Continue Apirin 81mg, mod intensity statin and anti-HTN regimen Problem List: 1. TIA (transient ischemic attack) Pain Ratin Pain Location: NA Pain Goal: Remain pain free Pain Plan: Per pathway Tomorrow's Labs & Rationales: None Mena Horn MD 11/01/17 0941: Attending MD Review Statement Attending Statement Attending MD Statement: examined this patient, discuss w/resident/PA/SUPERVISOR TWISTING DEPARTMENT, agreed w/resident/PA/SUPERVISOR TWISTING DEPARTMENT, discussed with family, reviewed EMR data (avail), discussed with nursing, discussed with case mgmt, reviewed images Attending Assessment/Plan: Patient is upset that the EEG did not get done yesterday. I reassured her that I spoke to neurology and this could be done as an outpatient. She is here with presyncopal events. 3 episodes over the past 3 years. The MRI is completely normal, the echo does show moderate aortic stenosis and she will need outpatient follow-up for the same. I have also given her a referral to neurology and she will have an outpatient EEG and further workup.
[2017-11-01 09:21] VITALS: BP 122/68
--- NOTE | 2017-11-01 13:51 | Discharge Summary ---
Visit Information Visit Dates Admission Date: 10/30/17 Discharge Date: 11/01/17 Hospital Course Course Attending Physician: Justina RYAN,Mena Sow Primary Care Physician: Tin Vasquez MD Hospital Course: 82 yo F with a PMH significant for HTN, HLD, macular degeneration, previous cholesystectomy, and depression, was brought to [place] ED after an episode of unresponsiveness. She described the episode as a cold sweat, associated with dizziness/disorientation, and not being able to move, but denies losing conciousness. She has had 3 such episodes in last 3 1/2 yrs. She was worked up for her presyncopal events. She hasn't had any repeat episodes since her hospital stay. Head MRI/CT was unremarkable except for mild ischemic change in cerebral white matter. Her echocardiogram showed moderate aortic stenosis and moderate mitral annular calcification. EEG was not performed due to scheduling issues and patient expressed wish to return home. She was instructed to follow up outpatient for her EEG with her neurologist within a week, and also instructed not to drive until her neurologist has cleared her. She was sent home and advised to continue her medication regimen including aspirin 81mg and atorvastatin 20mg along with the rest of her cardiac and chronic conidtion medications. MRI Head 10/30/17 IMPRESSION: - No acute infarct, mass lesion, intracranial hemorrhage, or evidence of hydrocephalus. - Mild small vessel ischemic changes in the cerebral white matter. Head CT 10/30/17 IMPRESSION: Unremarkable CT scan of the head. No evidence of acute territorial infarct or hemorrhage. Echo 10/31/17 CONCLUSIONS Moderate concentric left ventricular hypertrophy. Normal left ventricular ejection fraction visually estimated at > 65%. Abnormal relaxation filling pattern of the left ventricle for age (stage 1 diastolic dysfunction). The left atrium is normal in size. Mild thickening/calcification of the mitral valve leaflets. Moderate mitral annular calcification. No mitral regurgitation. Diffuse thickening of the aortic valve cusps with reduced excursion. Moderate aortic stenosis. Unable to estimate the right ventricular systolic pressure. Allergies: Coded Allergies: shrimp (Severe, ANAPHYLAXIS 10/30/17) Disposition Summary Disposition Principal Diagnosis: Presyncopal episodes (Possible TIA vs Absence Seizure) Additional Diagnosis: None Discharge Disposition: home or self care Discharge Instructions General Discharge Information Code Status: Full Code Patient's Diet: Heart healthy Patient's Activity: As tolerated Follow-Up Instructions/Appts: Follow up with PCP and neurologist within one week. Please do not drive until you see the neurologist. Medications at Discharge Discharge Medications: Continue taking these medications: Atorvastatin Calcium (Lipitor) 20 MG TABLET 1 Tablet ORAL DAILY Comments: Last Taken: 10/31/17 Time: 6PM Diltiazem HCl (Diltiazem 24HR ER) 240 MG CAP.ER.24H 1 Capsule ORAL DAILY Comments: Last Taken: 11/01/17 Time: 0920 AM Lisinopril/Hydrochlorothiazide (Lisinopril-Hctz 20-12.5 MG Tab) 20 MG-12.5 MG TABLET 1 Tablet ORAL DAILY Comments: Last Taken: 11/01/17 Time: 0920 AM Sertraline HCl (Sertraline HCl) 50 MG TABLET 1 Tablet ORAL DAILY Comments: Last Taken: 11/01/17 Time: 0920 AM Aspirin (Ecotrin*) 81 MG TABLET.DR 1 Tablet ORAL DAILY Comments: Last Taken: 11/01/17 Time: 0920 AM Multivit-Min/FA/Lycopen/Lutein (Centrum Silver Tablet) 0.4 MG-300 MCG-250 MCG TABLET 1 Tablet ORAL DAILY Comments: NOT GIVEN IN HOSPITAL. Calcium Carb & Citrate/Vit D3 (Citracal + D ER Tablet) 600 MG CALCIUM-500 UNIT TABLET.ER 1 Tablet ORAL DAILY Comments: NOT GIVEN IN HOSPITAL. Vit A/Vit C/Vit E/Zinc/Copper (Preservision Areds Tablet) 7,160-113 TABLET 1 Tablet ORAL DAILY Comments: NOT GIVEN IN HOSPITAL. Cholecalciferol (Vitamin D3) 1,000 UNIT TABLET 1 Tablet ORAL DAILY Comments: NOT GIVEN IN HOSPITAL. Copies To: Ashley RYAN,Matt Murray; Christina RYAN,Tin Farrar
== END 2017-11-01 10:03 | DRG 69 ==
LOC: ERH 10:12 → ERHI 13:18 → 1NO 13:18 → ENRESERV 20:26 → ENTRNSPT 20:50 → EDTRNSPTSTS 21:03 → EDTRNSPT 21:03 → 1NO 21:09 → CMPTRNSPT 21:24 → ENPENDDIS 11-01 08:52 → ENTRNSPT 11-01 09:52 → EDTRNSPTSTS 11-01 09:59 → EDTRNSPT 11-01 09:59 → 1NO 11-01 10:03 → CMPTRNSPT 11-01 10:15
PROVIDERS: Physician Assistant Medical; Student in an Organized Health Care Education/Training Program
DX: G45.9 Transient cerebral ischemic attack, unspecified (principal); R56.9 Unspecified convulsions; I10 Essential (primary) hypertension; E78.5 Hyperlipidemia, unspecified; I35.0 Nonrheumatic aortic (valve) stenosis; H35.30 Unspecified macular degeneration; Z90.49 Acquired absence of other specified parts of digestive tract
CPT/HCPCS: 1NSP; 70551; 36415; 81001; 82436; 93005; 93010; 93306; J1650